=== PATIENT | female | born 1930 | race Caucasian/White ===

== ENCOUNTER 2016-11-26 12:19 | Inpatient (IN) | payer BC ==
--- NOTE | ~2016-11-26 | DS ---
Discharge Summary [facility] [address] [place]. [address] NAME: RICKI DIETRICH : 32 STATUS : DIS IN PAT#: [id number] AGE: 86 ADM/REG DATE : 11/26/16 MR#: [id number] REPORT SERV DATE: 12/05/16 DICTATED BY: SHERIF HART DATE: 12/04/16 REPORT STATUS : Draft TRANSCRIBED BY: MODL DATE: 12/04/16 ADMISSION DATE: 11/26/2016 DISCHARGE DATE: 12/04/2016 DISCHARGE DIAGNOSES: 1. Choledocholithiasis, status post ERCP with a sphincterotomy and repeated brushing of the common bile duct to remove small stones. 2. Symptomatic cholelithiasis, status post cholecystectomy. 3. Nausea and anorexia with a 13-pound weight loss. 4. Moderate protein-calorie malnutrition. 5. Chronic constipation. 6. Paroxysmal atrial fibrillation, on Xarelto. 7. Chronic pain syndrome. 8. Hypertension. 9. Hyperlipidemia. 10.Nonocclusive coronary artery disease. 11.Sleep apnea. 12.Mild cognitive impairment. 13.Generalized anxiety disorder. CONSULTANTS DURING THIS HOSPITALIZATION: Dr. Bunny Duffy of Gastroenterology, Dr. Franko Hoff of General Surgery. INVASIVE PROCEDURES DONE DURING THIS HOSPITALIZATION: 1. ERCP as noted above. 2. Laparoscopic-assisted cholecystectomy performed by Dr. Hoff. IMAGING: Please refer to interim summary dictated by Dr. Juarez on 12/02/2016. BRIEF HISTORY OF PRESENT ILLNESS: The patient is an 86-year-old female, presented with weakness, nausea, vomiting, and weight loss, so she was admitted. For detailed history and physical exam, please see note dictated by Dr. Lj Juarez on 11/26/2016. HOSPITAL COURSE: After being admitted to the hospital, this patient was cared for by Dr. Juarez. Please refer to the interim summary dictated by Dr. Juarez on 12/01/2016. I took over this patient's care on 12/02/2016. This patient was doing well. She was status post laparoscopy-assisted cholecystectomy. She was tolerating a diet. Her appetite was improving. Her nausea and vomiting had abated. Her liver functions studies had normalized. We were awaiting rehab approval. Today, we have rehab approval. Surgery has signed off her care and GI has signed off her care. She feels well enough that she could be discharged to rehab. DISCHARGE DISPOSITION: To rehab. DISCHARGE ACTIVITY: Per facility. Discharge Summary [place] [address] [address] [place]. [address] NAME: RICKI DIETRICH : 32 STATUS : DIS IN PAT#: [id number] AGE: 86 ADM/REG DATE : 11/26/16 MR#: [id number] REPORT SERV DATE: 12/05/16 DICTATED BY: SHERIF HART DATE: 12/04/16 REPORT STATUS : Draft TRANSCRIBED BY: RACHAEL DATE: 12/04/16 DISCHARGE DIET: Low-sodium diet. DISCHARGE MEDICATIONS: Baclofen 10 mg once at bedtime, BuSpar 10 mg p.o. twice daily, Celexa 40 mg once daily, Aricept 10 mg every morning, Atrovent nasal spray two sprays in each nostril once daily, Claritin 10 mg once daily, melatonin 10 mg once at bedtime, morphine SR 30 mg q.12 hours, Lopressor XL 100 mg daily, Protonix 40 mg daily, potassium 10 mEq once daily, Xarelto 20 mg once daily, Senokot one tablet once daily, Zocor 20 mg once daily, tramadol 100 mg every six hours as scheduled, Lasix 20 mg once daily, and Lamisil 250 mg p.o. daily started on 10/17 for the next 90 days. DISCHARGE FOLLOWUP: With Dr. Julio García, post rehab. More than 30 minutes spent planning this patient's discharge, reconciling medications, discussing hospital care and followup, and documenting this discharge. NA/RACHAEL Sherif Hart M.D. / [id number] CC: Nik Oneal M.D. [facility]
--- NOTE | ~2016-11-26 | OP ---
Record Of Operation [facility] [address] [place]. [address] NAME: RICKI DIETRICH : 32 STATUS : ADM Nura PAT#: [id number] AGE: 86 ADM/REG DATE : 11/26/16 MR#: [id number] REPORT SERV DATE: 12/02/16 DICTATED BY: WALKER SALES III DATE: 12/01/16 REPORT STATUS : Draft TRANSCRIBED BY: MODL DATE: 12/01/16 DATE OF PROCEDURE: 12/01/2016 PREOPERATIVE DIAGNOSES: Symptomatic cholelithiasis, cholecystitis, and recent episode of biliary colic. POSTOPERATIVE DIAGNOSES: Symptomatic cholelithiasis, cholecystitis, and recent episode of biliary colic. PROCEDURE: Laparoscopic cholecystectomy. SURGEON: Walker Sales M.D. ANESTHESIA: General with intubation. COMPLICATIONS: None. ESTIMATED BLOOD LOSS: Less than 30 mL. SPECIMENS: Gallbladder. DRAINS: None. LAP AND SPONGE COUNT: Correct x3. BRIEF HISTORY: This 86-year-old female had been admitted to the hospital emergently with evidence for chronic cholecystitis, cholelithiasis, and recent choledocholithiasis. The patient had recently undergone ERCP and common bile duct had been cleared of stones. It is now felt that laparoscopic cholecystectomy, possible laparotomy, was indicated. On this procedure, the risks, benefits, alternatives, including not limited to the risk for bleeding, infection, common bile duct injury, bile leak, retained common bile stone, enterotomy, injury to any abdominal structure, the definite possible need for laparotomy, possible persistence of her symptoms unrelieved by surgery, possibility of postoperative diarrhea or incisional hernia, and unforeseen complications including deep venous thrombosis, pulmonary embolus, myocardial infarction, stroke, pneumonia, and , were fully and completely explained to the patient and family prior to surgery. The fact that this was a major operation with risk for major morbidity and mortality, no guarantee for relief of her symptoms were explained to them. The expected length of recovery of both open and laparoscopic procedures was explained. The patient and family had questions, which were answered. They fully understood the risks and agreed to surgery as planned. DESCRIPTION OF PROCEDURE: After being properly identified and after discussing risks of surgery with the patient and family again in the preoperative area, she was taken to the operating room and placed in the supine position on the operating room table. General anesthesia was administered, and she was intubated without difficulty. The abdomen was prepped and draped sterilely in the usual fashion. After an appropriate "time-out" per Record Of Operation [facility] [address] [facility] [place]. [address] NAME: RICKI DIETRICH : 32 STATUS : ADM Nura PAT#: [id number] AGE: 86 ADM/REG DATE : 11/26/16 MR#: [id number] REPORT SERV DATE: 12/02/16 DICTATED BY: WALKER SALES III DATE: 12/01/16 REPORT STATUS : Draft TRANSCRIBED BY: MODL DATE: 12/01/16 [facility] standards, a small transverse incision was made below the umbilicus. The skin and fascia on either side of this were elevated with towel clips. A Veress needle was placed through the incision into the peritoneal cavity. Correct position of the needle in peritoneal cavity was confirmed by the hanging drop test. The abdominal cavity was insufflated to about 13 mmHg with carbon dioxide. Correct position of the air in the peritoneal cavity was confirmed by palpation. The Veress needle was removed and replaced with a 10 mm trocar. The laparoscope was placed through this. The patient was placed in reverse Trendelenburg position and to her left. A second 10 mm trocar was placed just below the xiphoid process, to the right of falciform ligament, under direct vision with the laparoscope. Two 5 mm trocars were placed along the right subcostal margin, one in the midaxillary line and the other in the midclavicular line. These were also placed under direct vision with the laparoscope. The upper abdomen was inspected. The gallbladder appeared to be chronically diseased. The gallbladder escobar were thickened, inflamed with adhesions between the gallbladder and omentum consistent with cholecystitis. The liver and remainder of the upper abdomen were otherwise unremarkable as far as we could determine through the laparoscope. The gallbladder was in an unusual location. It was extremely laterally along the right lateral lobe of the liver. The portal anatomy, however, was normal. The appropriate instruments were placed through the trocars. Using sharp dissection, the adhesions between the gallbladder and omentum were carefully dissected. The gallbladder and infundibulum were retracted laterally and inferiorly. The left lobe of the liver was fairly large and obscuring our view. For this reason, an another 5 mm trocar was placed to the left of the midline just beneath the xiphoid process, to help with mobilization of the left lobe of the liver. Using sharp dissection, the cystic duct was carefully and meticulously defined proximally and distally. The cystic duct was fairly long. The junction of the cystic duct with common bile duct was appreciated, but was not skeletonized. The cystic artery was similarly defined proximally and distally. The fibrous and fatty tissue between these structures were divided so as to clearly identify the critical view of safety and triangle of Calot. The lower portion of the gallbladder was dissected away from the liver so as to clearly identify the critical view of safety and critical angle. Once these structures were clearly defined, the cystic duct was clipped with two clips on the common bile duct side and one on the gallbladder side, all placed as close to the gallbladder as possible, taking care not encroach upon or injure the common bile duct in any way. The cystic duct was then divided between these clips as close to the gallbladder as possible. We elected not to perform a cholangiogram because there was no preoperative or intraoperative evidence for biliary dilatation because the patient's preoperative liver enzymes were normal because her ERCP had recently cleared the common bile duct of stones and because her biliary anatomy was clearly defined. The cystic artery was similarly clipped and divided as close to the gallbladder as possible. Using the spatula and the cautery, gallbladder was carefully dissected from the liver bed. This went very well. Before the gallbladder was completely removed, the gallbladder bed and portal areas were irrigated numerous times with saline. The saline was aspirated dry. This process was repeated several times until hemostasis was meticulously and thoroughly assured in all areas. It was also assured that the clips in the portal area were in good position and that there was no extravasation of bile from any accessory bile Record Of Operation [place] [address] [facility] [place]. [address] NAME: RICKI DIETRICH : 32 STATUS : ADM Nura PAT#: [id number] AGE: 86 ADM/REG DATE : 11/26/16 MR#: [id number] REPORT SERV DATE: 12/02/16 DICTATED BY: WALKER SALES III DATE: 12/01/16 REPORT STATUS : Draft TRANSCRIBED BY: MODL DATE: 12/01/16 ducts. Once this was assured, gallbladder was completely dissected away from the liver and placed in an Endopouch. The liver bed was elevated, irrigated, and inspected for meticulous and thorough hemostasis and for the absence of any biliary duct extravasation. Once this was assured, gallbladder and the Endopouch were brought out through the infraumbilical trocar site after placing the laparoscope through the subxiphoid trocar. The fascia of the infraumbilical incision was closed with 0 Vicryl suture. The 5 mm trocars were removed under direct vision with the laparoscope to assure hemostasis in these incisions. Finally, the subxiphoid trocar was removed under direct vision with laparoscopic to assure hemostasis in this incision. The air was removed from the peritoneal cavity through the skin incisions. The skin incisions were inspected for hemostasis and then closed with running subcuticular 4-0 Monocryl stitches. They were injected with 0.5% Marcaine. Dressings were applied. Anesthesia was reversed. The patient was taken to the recovery room in stable condition. She tolerated the procedure well. Her family was informed of results of surgery. The patient will remain in the hospital for postoperative care. RHJ/MODL Walker Sales III, M.D. / [id number] CC: Nik Campo M.D.
--- NOTE | ~2016-11-26 | HP ---
History And Physical [facility] [address] [place]. [address] NAME: RICKI COMBS : 32 STATUS : ADM IN [facility]#: [id number] AGE: 86 ADM/REG DATE : 11/26/16 MR#: [id number] REPORT SERV DATE: 11/26/16 DICTATED BY: DATE: REPORT STATUS : Draft TRANSCRIBED BY: MODL DATE: 11/26/16 DATE OF ADMISSION: 11/26/2016 The patient is admitted to the [facility]. CHIEF COMPLAINT: Weight loss, back pain. HISTORY OF PRESENT ILLNESS: Ms Combs is a pleasant 86-year-old white female, directly admitted from nurse practitioner, Rosalinda Tang's office this afternoon with chief complaints of nausea, poor p.o. intake, a 13-pound weight loss over the past six weeks. The patient has a history of gastroesophageal reflux disease, but denies any recent increase in heartburn. She denies any abdominal pain, although this initially was a symptom communicated as being present by the nurse practitioner. She denies any vomiting. She has not experienced any hematemesis or coffee-grounds emesis. She has had a recent increase in chronic constipation for which she was tried on Amitiza with some improvement. She reports having bowel movements daily as long as she takes her bowel regimen and prune juice. She states her stools are "always dark "because she takes iron supplements. She denies any recent change in the appearance of her bowel movements or the frequency of her bowel movements. She states that she has a "bitter taste in her mouth" and that "everything I tried to eat tastes poorly." She is unsure what to attribute this to, but states that is the main factor influencing her decrease in oral intake. The patient does endorse an increase in her back pain. She has a history of chronic lumbar spine back pain for which she sees pain management. Her tramadol has recently been increased in an attempt to help with the pain, but it has not. She denies any specific precipitating injury to her back recently. The patient has been seen on multiple occasions this month by Pain Management and her primary care provider for the above symptoms. She has been treated twice in the past month for urinary tract infection. Urinalyses were positive for red blood cells and leukocyte esterase at that time, but cultures were not obtained. She was treated with Cipro on both occasions. She denies any current dysuria, frequency, hematuria, or odor. She was seen by her primary care provider on 11/24/2016, and a comprehensive metabolic panel, as well as iron, amylase, ferritin, lipase, and TSH were obtained. Labs were normal and results will be dictated below. She also had a CBC done which was normal. She was sent for a CT abdomen and pelvis with contrast on 11/25/2016 to [facility] with findings of right hemidiaphragm elevation, hypodense lesions in the right hepatic lobe, and left hepatic lobes, mild hepatic steatosis, gallstone but no evidence of gallbladder distention or inflammation. Her common bile duct was noted to be mildly dilated at the pancreatic head along with mild dilation of the proximal pancreatic duct. She had no evidence of abdominal aortic aneurysm, small bowel obstruction, or fecal stasis/constipation. Focally advanced degenerative disk disease at L5-S1 was noted with a focus of circumscribed fat density in the perirectal fat, felt to represent fat necrosis. History And Physical [address] [address] NAME: RICKI COMBS : 32 STATUS : ADM IN [facility]#: [id number] AGE: 86 ADM/REG DATE : 11/26/16 MR#: [id number] REPORT SERV DATE: 11/26/16 DICTATED BY: DATE: REPORT STATUS : Draft TRANSCRIBED BY: MODL DATE: 11/26/16 The patient is referred to the Hospitalist Service for further evaluation of these symptoms because the nurse practitioner did not feel that the symptoms could be worked up additionally as an outpatient. The patient has seen Dr. Faulkner of [facility] previously with last EGD and colonoscopy in 2012. Procedures were performed for melena and heme-positive stools. She was found to have rectal prolapse and a hiatal hernia. REVIEW OF SYSTEMS: A full 14-point review of systems is negative except as dictated in the history of present illness. Of note, recent medication changes include the addition of terbinafine to the patient's regimen early in September which she states are around the same time her other symptoms started. She also has recently had discontinuation of nortriptyline and amitriptyline and addition of hematochezia as well as increase in tramadol. PAST MEDICAL HISTORY: Includes: 1. Nonocclusive coronary artery disease. 2. Permanent atrial fibrillation, rate controlled and on Xarelto. 3. Hypertension. 4. Hyperlipidemia. 5. Gastroesophageal reflux disease/mild gastritis. 6. Sleep apnea - does not utilize CPAP or nocturnal oxygen. 7. Osteoarthritis of bilateral knees, arms, shoulders. 8. Lumbar spine degenerative disk disease with previous lumbar spine surgery. 9. Mild cognitive impairment. 10.History of GI bleed in 2013. 11.Chronic constipation. PAST SURGICAL HISTORY: Includes bilateral knee replacement, lumbar spine surgery in 2006, hysterectomy, bilateral cataract extraction, and noted history of breast augmentation. ALLERGIES: INCLUDE DILTIAZEM AND CODEINE. CURRENT MEDICATIONS: 1. Amitiza 8 mcg p.o. q.h.s. 2. Baclofen 10 mg p.o. q.h.s. 3. BuSpar 10 mg p.o. b.i.d. 4. Citalopram 40 mg p.o. daily. 5. Donepezil 10 mg p.o. daily. 6. Iron sulfate 325 mg p.o. daily. 7. Furosemide 20 mg p.o. daily. 8. Ipratropium nasal spray 2 sprays in each nostril twice a day. 9. Loratadine 10 mg p.o. daily. 10.Melatonin 10 mg p.o. q.h.s. 11.Metoprolol extended release 100 mg p.o. daily. 12.Morphine extended release 30 mg twice a day. 13.Protonix 40 mg p.o. daily. History And Physical [address] [address] NAME: RICKI COMBS : 32 STATUS : ADM IN [facility]#: [id number] AGE: 86 ADM/REG DATE : 11/26/16 MR#: [id number] REPORT SERV DATE: 11/26/16 DICTATED BY: DATE: REPORT STATUS : Draft TRANSCRIBED BY: RACHAEL DATE: 11/26/16 14.Potassium chloride 10 mEq p.o. daily. 15.Senokot 8.6 mg p.o. nightly. 16.Simvastatin 20 mg p.o. daily. 17.Terbinafine 250 mg p.o. daily. 18.Ultram 100 mg p.o. every six hours. 19.Xarelto 20 mg p.o. daily. SOCIAL HISTORY: The patient currently resides at [facility]. She has a supportive daughter who is here at the bedside. No history of current tobacco use or alcohol use. She does not drive and ambulates with a walker at baseline. FAMILY HISTORY: Pertinent for lung cancer in her mother, diabetes in her brother, hypertension in her brother, and coronary artery disease in her brother. PHYSICAL EXAMINATION: VITAL SIGNS: Blood pressure 144/82, oxygen saturations 94% on room air, heart rate 80, respiratory rate 12, and temperature 98.7. GENERAL: This is a well-developed, well-nourished pleasant white female, in no acute distress. Alert and oriented in three dimensions. HEENT: Normocephalic, atraumatic. Pupils are equally round and reactive to light. No scleral icterus. No conjunctival pallor. No sinus tenderness to palpation. No nasal drainage. NECK: Supple with no lymphadenopathy. No bruits. No thyromegaly. CARDIOVASCULAR: Irregularly irregular rhythm with normal rate. No murmurs, rubs, or gallops. LUNGS: Clear to auscultation bilaterally. No wheezes, crackles, nor rhonchi. ABDOMEN: Soft, nontender, and nondistended with normoactive bowel sounds in four quadrants and no hepatosplenomegaly. EXTREMITIES: No cyanosis, clubbing, or edema. SKIN: Normal skin turgor with no rash or skin breakdown. NEUROLOGIC: Cranial nerves 2 through 12 were tested and are intact. Deep tendon reflexes 2+ bilateral brachioradialis and patellar tendons. Sensation intact to fine touch and temperature in all four limbs and strength is 5/5 bilateral upper and lower extremities. LABORATORY DATA: 11/24/2016 outpatient labs pertinent for sodium 139, potassium 3.9, chloride 99, bicarb 30, glucose 98, creatinine 0.6. Calcium 9.5, albumin 4.4, total bilirubin 0.9, direct bilirubin 0.4, indirect is 0.5. ALT 26, AST 26, alkaline phosphatase 113, total protein 7.8, albumin 3.4, iron 60, amylase 30, ferritin 236.4, TSH 5.5. Lipase value not available. Urinalysis not available but culture negative at 24 hours. White blood cell count 7.2, hemoglobin 16.5, hematocrit 50.4, and platelets 219. IMAGING AND DIAGNOSTICS: CT abdomen and pelvis, as dictated in history of present illness with pertinent findings of several hypodense lesions in the liver of uncertain etiology, cholelithiasis, mild extrahepatic biliary ductal dilatation and proximal pancreatic duct dilatation raising possibility of distal biliary obstruction, small hiatal hernia, and circumscribed fat density in the perirectal fat. History And Physical [address] [place]. [address] NAME: RICKI COMBS : 32 STATUS : ADM IN PAT#: [id number] AGE: 86 ADM/REG DATE : 11/26/16 MR#: [id number] REPORT SERV DATE: 11/26/16 DICTATED BY: DATE: REPORT STATUS : Draft TRANSCRIBED BY: MODL DATE: 11/26/16 IMPRESSION: 1. Poor p.o. intake with a 13-pound weight loss over six weeks. 2. Nausea, but no vomiting. 3. Constipation - acute on chronic. 4. Increased back pain with a history of lumbar spine degenerative disk disease, followed by Pain Management. 5. Mild dilation of the common bile duct and pancreatic duct on CT scan. 6. Possible liver cyst on CT scan. 7. Chronic anticoagulation for atrial fibrillation. 8. Recent initiation of terbinafine, temporally associated with symptom onset. 9. Past medical history as outlined. PLAN: 1. The patient is admitted in observation status to [address] [place] [address] attending, Dr. Lj Juarez. 2. The nature of her symptoms is somewhat elusive, and exact etiology cannot be determined. The CT findings are potentially concerning for a pancreatic process or common bile duct mass. We will obtain an MRCP for better evaluation, and I have requested GI consultation from Dr. Duffy regarding potential for EGD or ERCP following results of MRCP. 3. We will discontinue the patient's terbinafine as this seems to have been temporally associated with her symptom onset. 4. Labs pending today include CBC, CMP, amylase, lipase, magnesium, repeat TSH with a free T4 to evaluate for hypothyroidism, serum lactate, CA-19-9, stool guaiacs, and pre- albumin to evaluate for protein calorie malnutrition. 5. P.r.n. IV narcotics for her severe back pain unrelieved by home regimen. 6. IV anti-emetics. 7. Xarelto will be held at present for possible upcoming invasive procedures. This was explained to the patient and her daughter at the bedside. Additional recommendations pending results of above. AKS/MODL Lj Juarez M.D. / [id number] CC: Nik Campo M.D.
--- NOTE | ~2016-11-26 | CN ---
Consultation Report [facility] [address] [place]. [address] NAME: RICKI COMBS : 32 STATUS : ADM IN PAT#: [id number] AGE: 86 ADM/REG DATE : 11/26/16 MR#: [id number] REPORT SERV DATE: 11/26/16 DICTATED BY: EVER MCKEON DATE: 11/26/16 REPORT STATUS : Draft TRANSCRIBED BY: MODL DATE: 11/26/16 GI CONSULTATION DATE OF CONSULTATION: 11/26/2016 REASON FOR CONSULTATION: Evaluation and management of nausea, abnormal CT scan. HISTORY OF PRESENT ILLNESS: Ms. Combs is an 86-year-old female patient, who is known to Dr. Chris Faulkner, who presented after being seen by her primary care physician for a direct admission today for nausea, anorexia, weight loss, abnormal CT scan in the outpatient setting. She was seen in their office on 11/24/2016 with complaints of weight loss and abdominal pain. She had a CT scan that was obtained at [facility], report is available in the chart and state impression that she has several hypodense lesions in the liver of uncertain etiology and are not conclusively cystic by CT criteria, cholelithiasis, mild extrahepatic biliary ductal dilatation, and proximal pancreatic duct dilatation raising the possibility of distal biliary obstruction, a small hiatal hernia, degenerative changes of the spine. She did have laboratory work done with them. White count was 7.2, hemoglobin was 16.5, hematocrit was 50.4, platelet count was 219. Her sodium was 139, potassium is 3.9. Her total bilirubin was 0.9. Her ALT 26, AST was 26 also, alkaline phosphatase is 113. Amylase was [address] scan findings and weight loss. She was sent for further evaluation. The patient states that she also has had some dysphagia with prolonged mastication, altered sense of taste after beginning terbinafine. I will discuss with the patient as well as the family with her being on Xarelto, and no elevation in her liver enzymes. We will start with an MRI of her abdomen in consideration for potential ERCP, EUS versus EGD. They are agreeable to proceed. PAST MEDICAL HISTORY: Positive for upper GI bleeding in 2012, coronary artery disease, chronic atrial fibrillation, previous Coumadin induced, she is now on Xarelto, hypertension, GERD, elevated cholesterol, obstructive sleep apnea, osteoarthritis, chronic pain, pain management, colon polyps gastritis. SURGICAL HISTORY: Lower back surgery, cardiac catheterization, total knee replacement, hysterectomy, and cardioversion. SOCIAL HISTORY: She lives in assisted living. No alcohol, tobacco, or illicit drugs. FAMILY HISTORY: Noncontributory from a GI standpoint. ALLERGIES: LISTED TO DILTIAZEM AND CODEINE. HOME MEDICATIONS: Baclofen, BuSpar, Celexa, Aricept, ferrous sulfate, Lasix, Atrovent, Claritin, melatonin, Toprol, MS Contin, Protonix, potassium, Xarelto, Senokot, Zocor, Lamisil, and Ultram. Consultation Report [place] [id number] [place]. [address] NAME: RICKI COMBS : 32 STATUS : ADM IN [facility]#: [id number] AGE: 86 ADM/REG DATE : 11/26/16 MR#: [id number] REPORT SERV DATE: 11/26/16 DICTATED BY: EVER MCKEON DATE: 11/26/16 REPORT STATUS : Draft TRANSCRIBED BY: RACHAEL DATE: 11/26/16 REVIEW OF SYSTEMS: A 10-point review of systems was obtained with pertinent positives being addressed in the history of present illness. Vital signs are not yet taken. Laboratory data at [facility] not available. CT scan from outpatient setting was dictated in the history of present illness. PHYSICAL EXAMINATION: NEURO: Reveals an alert female, resting in bed with no focal deficits. Awake, alert, and oriented x3. GENERAL: Cooperative, in no obvious acute distress. HEAD EARS, EYES, NOSE, AND THROAT : Anicteric. Pupils equal, round, reactive to light and accommodation. Normocephalic and atraumatic. NECK: No JVD. No palpable nodes. CARDIOVASCULAR SYSTEM: Regular rate and rhythm. ABDOMEN: Soft, nondistended, nontender. Active bowel sounds in all four quadrants with no organomegaly appreciated. EXTREMITIES: No edema. Normal distal pulses. SKIN: Warm, dry, and intact. ASSESSMENT AND PLAN: 1. Nausea, acute on chronic. 2. Weight loss. 13 pounds in the last six weeks. 3. Dysphagia and dysgeusia. 4. Constipation, chronic. 5. Mild dilation of the common bile duct and pancreatic duct. 6. Questionable liver cyst versus neoplasm. PLAN: 1. MRCP. 2. PPI. 3. Check a CA 19-9 and alpha-fetoprotein as well as LFTs. 4. Questionable ERCP versus EUS versus EGD based on MRI findings. I will hold Xarelto at present for anticipation for possibility of scoping. Plan of care was discussed with daughter, who was present at the bedside. We will follow. GEORGIE/RACHAEL KAVYA Srinivasan / [id number] CC: Consultation Report [address] [place]. [address] NAME: RICKI COMBS : 32 STATUS : ADM IN PAT#: [id number] AGE: 86 ADM/REG DATE : 11/26/16 MR#: [id number] REPORT SERV DATE: 11/26/16 DICTATED BY: EVER MCKEON DATE: 11/26/16 REPORT STATUS : Draft TRANSCRIBED BY: RACHAEL DATE: 11/26/16 Nik Campo. Julio García M.D.
--- NOTE | ~2016-11-26 | EGD ---
EGD REPORT [facility] [address] [place]. [address] NAME: RADHA COMBS : 32 STATUS : ADM Nura PAT#: [id number] AGE: 86 ADM/REG DATE : 11/26/16 MR#: [id number] REPORT SERV DATE: 11/28/16 DICTATED BY: BUNNY TAYLOR DATE: 11/28/16 REPORT STATUS : Draft TRANSCRIBED BY: [facility] DATE: 11/28/16 [facility] Patient Name: Radha Combs Date of : 1930 Attending MD: BUNNY TAYLOR MD Procedure Date No Time: 11/28/2016 Procedure: ERCP Indications: Evaluation and possible treatment of bile duct stone(s) Medicines: Monitored Anesthesia Care, General Anesthesia Complications: No immediate complications. Estimated blood loss: Minimal. Procedure: Pre-Anesthesia Assessment: - ASA Grade Assessment: III - A patient with severe systemic disease. After obtaining informed consent, the scope was passed under direct vision. Throughout the procedure, the patient's blood pressure, pulse, and oxygen saturations were monitored continuously. The Duodenoscope was introduced through the mouth, and advanced to the duodenum and used to inject contrast into the bile duct. The ERCP was accomplished without difficulty. The patient tolerated the procedure well. Findings: The activity aid film was normal. The esophagus was successfully intubated under direct vision. The scope was advanced to a normal major papilla in the descending duodenum without detailed examination of the pharynx, larynx and associated structures, and upper GI tract. After engaging the papilla with the sphinctertome, a 0.035 inch x 260 cm straight Dreamwire was passed into the biliary tree. The short-nosed traction sphincterotome was passed over the guidewire and the bile duct was then deeply cannulated. Contrast was injected. I personally interpreted the bile duct images. Image quality was adequate. The main bile duct was moderately dilated and diffusely dilated, with small stone/s causing an obstruction. The largest diameter was 12 mm. A 10 mm biliary sphincterotomy was made with a monofilament traction (standard) sphincterotome using ERBE electrocautery. There was no post-sphincterotomy bleeding. Debris was swept from the duct but no definitive stones were seen. Repeated balloon sweeps were performed, with passage of the 12 mm balloon through the biliary orifice with little/no resistance, suggesting a widely patent common bile duct. The endoscope was withdrawn from the patient. Impression: - The entire main bile duct was moderately dilated, with small stones seen on cholangiogram causing an EGD REPORT [address] [address] NAME: RADHA COMBS : 32 STATUS : ADM Nura PAT#: [id number] AGE: 86 ADM/REG DATE : 11/26/16 MR#: [id number] REPORT SERV DATE: 11/28/16 DICTATED BY: BUNNY TAYLOR DATE: 11/28/16 REPORT STATUS : Draft TRANSCRIBED BY: [employer] DATE: 11/28/16 obstruction. - Successful sphincterotomy with repeated balloon sweeps to clear the CBD Recommendation: - [facility]. - Observe patient's clinical course following today's ERCP with therapeutic intervention. - Surgical consultation for consideration of cholecystectomy next available. Procedure Code(s): --- Professional --- 74463, Endoscopic retrograde cholangiopancreatography (ERCP); with removal of calculi/debris from biliary/pancreatic duct(s) 44232, Endoscopic retrograde cholangiopancreatography (ERCP); with sphincterotomy/papillotomy Diagnosis Code(s): --- Professional --- K80.31, Calculus of bile duct with cholangitis, unspecified, with obstruction K80.33, Calculus of bile duct with acute cholangitis with obstruction K80.35, Calculus of bile duct with chronic cholangitis with obstruction K80.37, Calculus of bile duct with acute and chronic cholangitis with obstruction K80.51, Calculus of bile duct without cholangitis or cholecystitis with obstruction K80.50, Calculus of bile duct without cholangitis or cholecystitis without obstruction CPT copyright 2013 [employer]. All rights reserved. The codes documented in this report are preliminary and upon hall cleaner review may be revised to meet current compliance requirements. Bunny Taylor MD BUNNY TAYLOR MD 11/28/2016 8:25 AM This report has been signed electronically. Number of Addenda: 0 Note Initiated On: 11/28/2016 7:11 AM Scope Withdrawal Time 0 hours 0 minutes 0 seconds EGD REPORT [place] [id number] [place] [address] NAME: RADHA COMBS : 32 STATUS : ADM Nura PAT#: [id number] AGE: 86 ADM/REG DATE : 11/26/16 MR#: [id number] REPORT SERV DATE: 11/28/16 DICTATED BY: BUNNY TAYLOR DATE: 11/28/16 REPORT STATUS : Draft TRANSCRIBED BY: [employer] DATE: 11/28/16 [place] Fowler [id number]
--- NOTE | ~2016-11-26 | IDS ---
Interim Discharge Summary [facility] [address] [place]. [address] NAME: RICKI DIETRICH : 32 STATUS : ADM Nura PAT#: [id number] AGE: 86 ADM/REG DATE : 11/26/16 MR#: [id number] REPORT SERV DATE: 12/02/16 DICTATED BY: DATE: REPORT STATUS : Draft TRANSCRIBED BY: MODL DATE: 12/01/16 ADMISSION DATE: 11/26/2016 DISCHARGE DATE: The patient is admitted to the [facility] Hospitalist Service. CONSULTANTS: Included Dr. Duffy of Gastroenterology and Dr. Hoff of General Surgery. CURRENT DIAGNOSES: 1. Choledocholithiasis - status post ERCP with sphincterotomy and repeated brushings of the common bile duct to remove small stones on 11/28/2016. 2. Symptomatic cholelithiasis - status post laparoscopic cholecystectomy on 12/01/2016. 3. Nausea, anorexia, 13-pound weight loss, and moderate protein-calorie malnutrition prior to admission - due to choledocholithiasis and symptomatic cholelithiasis. 4. Chronic constipation. 5. Paroxysmal atrial fibrillation. Xarelto held preoperatively. For reinitiation when okay with General Surgery. Currently in normal sinus rhythm. 6. Chronic pain syndrome and narcotic dependence. 7. Hypertension - controlled with the exception of postop elevation. 8. Hyperlipidemia. 9. Nonocclusive coronary artery disease. 10.Sleep apnea - not utilizing CPAP or nocturnal oxygen. 11.Mild cognitive impairment. 12.Generalized anxiety disorder. IMAGIN. MRCP on 11/26/2016 shows benign liver cysts or hemangiomas, evidence of choledocholithiasis with obstruction of the common bile duct. Common bile duct measures 0.7 cm. Stone appears to be in slightly different positions and some of the sequences suggesting somewhat mobile. Obstructive pattern may be clinically intermittent. 2. ERCP, 11/28/2016, by Dr. Duffy with findings of multiple small bile duct stones. Main bile duct was moderately dilated and diffusely dilated. Sphincterotomy was performed and debris was swept from the duct with repeated balloon sweeps. PERTINENT LABS: Creatinine has been normal this admission. Liver enzymes normal this admission. Lipase minimally elevated, after ERCP at 872. TSH 2.1, free T4 of 1.76. CA19-9 of 5.4, alpha fetoprotein negative. Lactate 1.0. White blood cell count ranging from 4.6 to 9.4. Normal hemoglobin and hematocrit. Normal platelets. Normal coagulation studies. Stool for guaiac was positive x1. BRIEF HISTORY: For full details, please see the previously dictated history of present illness. This is an 86-year-old white female directly admitted from nurse practitioner, Rosalinda Tang's office the afternoon of 11/26/2016 with chief complaints of nausea, poor p.o. intake, 13-pound weight loss in the preceding six weeks. She had an outpatient CT scan done just prior to admission, which demonstrated hypodense lesions in the right hepatic Interim Discharge Summary [place] [id number] [place]. [address] NAME: RICKI DIETRICH : 32 STATUS : ADM Nura PAT#: [id number] AGE: 86 ADM/REG DATE : 11/26/16 MR#: [id number] REPORT SERV DATE: 12/02/16 DICTATED BY: DATE: REPORT STATUS : Draft TRANSCRIBED BY: MODL DATE: 12/01/16 lobe, mild hepatic steatosis, gallstone, and dilation of the common bile duct and proximal pancreatic duct. She was admitted to the Hospitalist Service for further evaluation of the symptoms and abnormalities on CT scan. HOSPITAL COURSE: The patient initially was admitted in observation status, and met criteria for inpatient admission by 11/27/2016 when her MRCP was reported demonstrating choledocholithiasis. Gastroenterology had been consulted and the patient underwent an ERCP on 11/28/2016, demonstrating choledocholithiasis with biliary ductal dilatation, and she subsequently underwent a sphincterotomy. Gastroenterology recommended obtaining surgical consultation for gallstones and symptomatic cholelithiasis. Dr. Franko Hoff saw the patient and schedule the patient for laparoscopic cholecystectomy, which occurred on 12/01/2016. The patient is immediately postoperative today, with no complaints aside from some nausea, which is controlled with medications and some nonspecific mild abdominal pain. She is just about to attempt her first p.o. intake since surgery. She states that she has had much weakness related to her prolonged illness preceding admission and she is unsure whether she will be able to return to assisted living currently. Physical Therapy evaluation is pending to determine if she would be a candidate for inpatient rehab or alf facility with rehab prior to return to [facility]. Her other medical issues as outlined above have been stable this admission. Her Xarelto is currently on hold, and will need to be resumed when okay with General Surgery. DISPOSITION: The patient remains hospitalized, to be followed by a colleague starting tomorrow. Would anticipate discharge to either alf facility or rehab within the next 48 to 72 hours, pending clinical course. BENNY/RACHAEL Lj Juarez M.D. / [id number] CC: Nik Campo M.D.
--- NOTE | ~2016-11-26 | CN ---
Consultation Report [place] [id number] [facility] [place]. [address] NAME: RICKI DIETRICH : 32 STATUS : ADM Nura PAT#: [id number] AGE: 86 ADM/REG DATE : 11/26/16 MR#: [id number] REPORT SERV DATE: 11/29/16 DICTATED BY: WALKER SALES III DATE: 11/29/16 REPORT STATUS : Draft TRANSCRIBED BY: MODL DATE: 11/29/16 CONSULT DATE OF CONSULTATION: 11/28/2016 REASON FOR CONSULT: 1. Cholelithiasis and nausea and weight loss. 2. Recommendation regarding surgical management. HISTORY OF PRESENT ILLNESS: We are asked to see this 86-year-old female hospitalized with the above reasons. The patient complains of a 6-week history of severe nausea. This nausea has been associated with anorexia and weight loss. The patient has had no definite abdominal pain. She has had no definite vomiting. The patient presented to the emergency room on admission, was found to have evidence for choledocholithiasis with cholelithiasis. The patient underwent ERCP yesterday. Common bile duct stones were removed. A sphincterotomy was performed. The patient feels better today. PAST MEDICAL HISTORY: 1. Atrial fibrillation. 2. Coronary artery disease. 3. Hypertension. 4. Gastroesophageal reflux disease. 5. Hypercholesterolemia. 6. Sleep apnea. 7. Chronic pain requiring pain management and chronic narcotics. 8. History of chronic constipation. 9. GI bleed in the past. ALLERGIES: CODEINE AND DILTIAZEM. MEDICATIONS: Lioresal, BuSpar, Celexa, Aricept, iron, Atrovent, Claritin, Amitiza, melatonin, Toprol, MS Contin, Protonix, potassium, Senokot, Zocor, Ultram, and Xarelto which has been held. PAST SURGICAL HISTORY: Includes hysterectomy, bilateral knee replacement, back surgery, breast augmentation, tonsillectomy. SOCIAL HISTORY: The patient lives in assisted living facility locally. She has no history of tobacco or alcohol use. FAMILY HISTORY: Positive for diabetes, hypertension, coronary artery disease. Consultation Report [place] [id number] [facility] [place]. [address] NAME: RICKI DIETRICH : 32 STATUS : ADM Nura PAT#: [id number] AGE: 86 ADM/REG DATE : 11/26/16 MR#: [id number] REPORT SERV DATE: 11/29/16 DICTATED BY: WALKER SALES III DATE: 11/29/16 REPORT STATUS : Draft TRANSCRIBED BY: MODPaula DATE: 11/29/16 REVIEW OF SYSTEMS: The patient's 14-point review of systems is otherwise unremarkable. PHYSICAL EXAMINATION: GENERAL: Pleasant, chronically ill-appearing, somewhat obese female, in no acute distress. She is alert and oriented x3. HEENT: Unremarkable. CRANIAL NERVES: II through XII normal. LUNGS: Clear. CARDIAC: Normal. ABDOMEN: Soft, nontender. EXTREMITIES: Normal. VITAL SIGNS: Blood pressure 172/84, pulse 82, temperature 98.3. LABORATORY DATA: CT scan of the abdomen and pelvis showed evidence for several hypodense lesions in the liver, cholelithiasis, and mild biliary dilatation and proximal pancreatic duct dilatation with possible obstruction. MRCP performed here shows benign-appearing hepatic cyst or hemangioma. ERCP performed yesterday showed evidence for choledocholithiasis. Stones were removed. ASSESSMENT: 1. 86-year-old female with symptomatic cholelithiasis and chronic cholecystitis and choledocholithiasis. 2. Status post ERCP with common bile duct stone extraction. 3. Hypercholesterolemia. 4. Hypertension. 5. Coronary artery disease. 6. Atrial fibrillation. 7. Obstructive sleep apnea. 8. Chronic pain requiring chronic narcotics. 9. Chronic constipation. PLAN: I have discussed with the patient recommendations for laparoscopic cholecystectomy, possible laparotomy. We will schedule this to be done for her on Thursday. This procedure, the risks, benefits, and alternatives, including but not limited to the risk for bleeding, infection, common bile duct injury, bile leak, retained common bile duct stone, enterotomy, injury to the abdominal structures, the definite possible need for laparotomy, possible persistence of her symptoms unrelieved by surgery, the possibility of postop diarrhea or incisional hernia, and unforeseen complications including deep venous thrombosis, pulmonary embolus, myocardial infarction, stroke, pneumonia, and , have been explained to the patient and family at length prior to the surgery. The fact that this is a major operation with risk for major morbidity and mortality, no guarantee for relief of her symptoms has been explained. The expected length of recovery with open laparoscopic procedure has been explained. The fact that she is at increased risk for thromboembolic complications during Consultation Report [place] [id number] [place] [address] NAME: RICKI DIETRICH : 32 STATUS : ADM Nura PAT#: [id number] AGE: 86 ADM/REG DATE : 11/26/16 MR#: [id number] REPORT SERV DATE: 11/29/16 DICTATED BY: WALKER SALES III DATE: 11/29/16 REPORT STATUS : Draft TRANSCRIBED BY: MODPaula DATE: 11/29/16 this time while her anticoagulation is held has been explained. The patient's questions have been answered. She understands the risks and agrees to the surgery as planned. RHKhang/RACHAEL Walker Sales III, M.D. / [id number] CC: Nik Campo
[~2016-11-26 12:19] MED LIST: ANALPRAM-HC1 CRE RE; ATRONASAL3 NAS; B12100T PO; BUSPAR10 PO; BUSPAR5 PO; C2 PO; C25 PO; CELEBREX2 PO; CO Q-10100 MG PO; CYMBALTA60 PO; DSS PO; ESTRACE0.5 MG PO; ESTRACE1 MG PO; ESTRADIOL0.5 MG OR; FOSAMAX70 MG PO; KADIAN10 MG PO; KLOR-CON 1010 MEQ PO; L20 PO; LOP100 PO; LOP50 PO; MOBIC7.5 PO; MSCONT15 PO; MULTIVITAMI1 PO; NORV5 PO; PRILO PO; PROTONIX PO; SINGULAIR1 PO; STOOL SOFTEN100 MG PO; TOPXL100 PO; TOPXL50 PO; VITAMIN D31000 UNIT PO; VYTORIN 10/20 T1 TAB PO; ZOCOR20 PO; ZYRTEC ALLGY10 MG PO
[2016-11-26] MEDS ORDERED: CELEXA40 MG PO (13:55)
[2016-11-26] MEDS ORDERED: PROTONIX PO (13:55)
[2016-11-26] MEDS ORDERED: L20 PO (13:55)
[2016-11-26] MEDS ORDERED: LAM250 PO (13:57)
[2016-11-26] MEDS ORDERED: CLARIT10 PO (13:57)
[2016-11-26] MEDS ORDERED: ATRONASAL3 NAS (13:57)
[2016-11-26] MEDS ORDERED: ARICEPT10 PO (13:58)
[2016-11-26] MEDS ORDERED: TOPXL100 PO (13:58)
[2016-11-26] MEDS ORDERED: KDUR10 PO (13:58)
[2016-11-26] MEDS ORDERED: FERROUS SULF325 M1 PO (13:58)
[2016-11-26] MEDS ORDERED: BUSPAR10 PO (13:59)
[2016-11-26] MEDS ORDERED: MSCONTIN PO (13:59)
[2016-11-26] MEDS ORDERED: XARELTO20 MG PO (14:00)
[2016-11-26] MEDS ORDERED: LIOR10 PO (14:00)
[2016-11-26] MEDS ORDERED: ULTRAM50 PO (14:00)
[2016-11-26] MEDS ORDERED: ZOCOR20 PO (14:01)
[2016-11-26] MEDS ORDERED: MELATONIN10 M2 PO (14:01)
[2016-11-26] MEDS ORDERED: SENTAB PO (14:01)
[2016-11-26 16:33] LABS: BASOPHILS 0.2 %; BASOPHILS ABSOLUTE 0.01 10/3/uL (0.0-0.16); EOSINOPHILS 2.4 %; EOSINOPHILS ABSOLUTE 0.14 10/3/uL (0.0-0.53); IMMATURE GRANULOCYTES 0.3 %; IMMATURE GRANULOCYTES ABSOLUTE 0.02 10/3/uL (0.0-0.11); LYMPHOCYTES 34.4 %; LYMPHOCYTES ABSOLUTE 2.04 10/3/uL (0.67-4.30); MEAN PLATELET VOLUME 11.3 fL (9.2-13.0); MONOCYTES 11.3 %; MONOCYTES ABSOLUTE 0.67 10/3/uL (0.21-1.20); NEUTROPHILS 51.4 %; NEUTROPHILS ABSOLUTE 3.05 10/3/uL (2.02-8.40); PLATELET COUNT 195 10/3/uL (150-400); RBC DISTRIBUTION WIDTH 14.6 % (12.0-16.0); RED CELL COUNT 5.62 10/6/uL (4.0-5.6); WHITE BLOOD CELLS 5.9 10/3/uL (4.5-10.5)
[2016-11-26 16:40] LABS: HEMATOCRIT 46.3 % (36.0-48.0); HEMOGLOBIN 15.4 g/dL (12.0-16.0); MANUAL DIFF NO %; MEAN CORPUS HGB CONC 33.3 g/dL (32.0-36.0); MEAN CORPUSCULAR HEMOGLOB 27.4 pg (26.0-34.0); MEAN CORPUSCULAR VOLUME 82.4 fL (80-100)
[2016-11-26 17:03] LABS: A/G RATIO 0.7 (0.7-1.9); BUN (BLOOD UREA NITROGEN) 7 MG/DL (6-23); CA-19-9 5.4 U/ML (< 37.0); CO2 (CARBON DIOXIDE) 29 MMOL/L (24-34); GLOBULIN 4.2 G/DL (2.5-4.1); TOTAL BILIRUBIN 0.7 MG/DL (0-1.2); TOTAL PROTEIN 7.2 G/DL (6.0-8.5)
[2016-11-26 17:21] LABS: CHLORIDE, SERUM 101 MMOL/L (96-112); CREATININE 0.71 MG/DL (0.55-1.02); FREE T4 1.76 NG/DL (0.76-1.46); GFR AFRICAN AMERICAN 91 ML/MIN (>=60); GFR NON AFRICAN AMERICAN 78 ML/MIN (>=60); PREALBUMIN 14.5 MG/DL (17.0-43.0); SGPT(ALT) 23 U/L (5-65); SODIUM, SERUM 137 MMOL/L (135-148)
[2016-11-26 17:41] LABS: ALKALINE PHOSPHATASE 103 U/L (45-117); GLUCOSE, SERUM 89 MG/DL (60-99); POTASSIUM, SERUM 4.5 MMOL/L (3.5-5.3); SGOT(AST) 36 U/L (5-40)
[2016-11-27 06:05] LABS: INTERNATIONAL NORMAL RATI 1.3 UNITS (-); PROTIME (NOT ORD) 15.6 SEC (12.0-14.5)
[2016-11-27 06:17] LABS: BASOPHILS 0.2 %; BASOPHILS ABSOLUTE 0.01 10/3/uL (0.0-0.16); EOSINOPHILS 1.7 %; HEMATOCRIT 43.8 % (36.0-48.0); HEMOGLOBIN 14.8 g/dL (12.0-16.0); IMMATURE GRANULOCYTES 0.3 %; IMMATURE GRANULOCYTES ABSOLUTE 0.02 10/3/uL (0.0-0.11); LYMPHOCYTES 24.6 %; LYMPHOCYTES ABSOLUTE 1.43 10/3/uL (0.67-4.30); MEAN CORPUS HGB CONC 33.8 g/dL (32.0-36.0); MEAN CORPUSCULAR HEMOGLOB 27.7 pg (26.0-34.0); MEAN PLATELET VOLUME 11.9 fL (9.2-13.0); MONOCYTES ABSOLUTE 0.64 10/3/uL (0.21-1.20); NEUTROPHILS 62.2 %; NEUTROPHILS ABSOLUTE 3.62 10/3/uL (2.02-8.40); PLATELET COUNT 198 10/3/uL (150-400); RBC DISTRIBUTION WIDTH 14.6 % (12.0-16.0); RED CELL COUNT 5.34 10/6/uL (4.0-5.6); WHITE BLOOD CELLS 5.8 10/3/uL (4.5-10.5)
[2016-11-27 06:20] LABS: MANUAL DIFF NO %
[2016-11-27 06:25] LABS: BUN (BLOOD UREA NITROGEN) 6 MG/DL (6-23); CALCIUM, SERUM 8.7 MG/DL (8.5-10.4); CHLORIDE, SERUM 103 MMOL/L (96-112); CO2 (CARBON DIOXIDE) 27 MMOL/L (24-34); CREATININE 0.54 MG/DL (0.55-1.02); DIRECT BILIRUBIN 0.3 MG/DL (0.0-0.4); GFR AFRICAN AMERICAN 100 ML/MIN (>=60); GFR NON AFRICAN AMERICAN 87 ML/MIN (>=60); GLUCOSE, SERUM 105 MG/DL (60-99); INDIRECT BILIRUBIN(NOT ORDER) 0.5 MG/DL (0.1-0.9); POTASSIUM, SERUM 3.6 MMOL/L (3.5-5.3); SGOT(AST) 15 U/L (5-40); SGPT(ALT) 18 U/L (5-65); SODIUM, SERUM 140 MMOL/L (135-148); TOTAL BILIRUBIN 0.8 MG/DL (0-1.2); TOTAL PROTEIN 6.6 G/DL (6.0-8.5)
[2016-11-27 06:26] LABS: ALKALINE PHOSPHATASE 91 U/L (45-117)
[2016-11-28 06:38] LABS: BASOPHILS 0.4 %; BASOPHILS ABSOLUTE 0.02 10/3/uL (0.0-0.16); EOSINOPHILS 3.1 %; EOSINOPHILS ABSOLUTE 0.14 10/3/uL (0.0-0.53); HEMATOCRIT 43.9 % (36.0-48.0); HEMOGLOBIN 14.3 g/dL (12.0-16.0); IMMATURE GRANULOCYTES 0.2 %; IMMATURE GRANULOCYTES ABSOLUTE 0.01 10/3/uL (0.0-0.11); LYMPHOCYTES 28.3 %; LYMPHOCYTES ABSOLUTE 1.29 10/3/uL (0.67-4.30); MEAN CORPUS HGB CONC 32.6 g/dL (32.0-36.0); MEAN CORPUSCULAR HEMOGLOB 27.3 pg (26.0-34.0); MEAN CORPUSCULAR VOLUME 83.9 fL (80-100); MEAN PLATELET VOLUME 11.7 fL (9.2-13.0); MONOCYTES 12.1 %; MONOCYTES ABSOLUTE 0.55 10/3/uL (0.21-1.20); NEUTROPHILS 55.9 %; NEUTROPHILS ABSOLUTE 2.55 10/3/uL (2.02-8.40); PLATELET COUNT 184 10/3/uL (150-400); RBC DISTRIBUTION WIDTH 14.4 % (12.0-16.0); RED CELL COUNT 5.23 10/6/uL (4.0-5.6); WHITE BLOOD CELLS 4.6 10/3/uL (4.5-10.5)
[2016-11-28 06:41] LABS: INTERNATIONAL NORMAL RATI 1.2 UNITS (-); PROTIME (NOT ORD) 15.1 SEC (12.0-14.5)
[2016-11-28 06:46] LABS: ALBUMIN 2.7 G/DL (3.5-5.0); ALKALINE PHOSPHATASE 89 U/L (45-117); BUN (BLOOD UREA NITROGEN) 5 MG/DL (6-23); CALCIUM, SERUM 8.2 MG/DL (8.5-10.4); CHLORIDE, SERUM 104 MMOL/L (96-112); CO2 (CARBON DIOXIDE) 26 MMOL/L (24-34); CREATININE 0.51 MG/DL (0.55-1.02); DIRECT BILIRUBIN 0.2 MG/DL (0.0-0.4); GFR AFRICAN AMERICAN 102 ML/MIN (>=60); GFR NON AFRICAN AMERICAN 88 ML/MIN (>=60); GLUCOSE, SERUM 92 MG/DL (60-99); INDIRECT BILIRUBIN(NOT ORDER) 0.5 MG/DL (0.1-0.9); POTASSIUM, SERUM 3.7 MMOL/L (3.5-5.3); SGOT(AST) 18 U/L (5-40); SGPT(ALT) 20 U/L (5-65); SODIUM, SERUM 140 MMOL/L (135-148); TOTAL BILIRUBIN 0.7 MG/DL (0-1.2); TOTAL PROTEIN 6.3 G/DL (6.0-8.5)
[2016-11-28 06:48] LABS: MANUAL DIFF NO %
[2016-11-28 06:52] LABS: PHOSPHORUS, SERUM 2.8 MG/DL (2.5-4.5)
[2016-11-29 04:57] LABS: BASOPHILS 0 %; EOSINOPHILS 0 %; HEMATOCRIT 43.3 % (36.0-48.0); HEMOGLOBIN 14.2 g/dL (12.0-16.0); IMMATURE GRANULOCYTES 0.2 %; IMMATURE GRANULOCYTES ABSOLUTE 0.02 10/3/uL (0.0-0.11); LYMPHOCYTES 13.1 %; LYMPHOCYTES ABSOLUTE 1.23 10/3/uL (0.67-4.30); MEAN CORPUS HGB CONC 32.8 g/dL (32.0-36.0); MEAN CORPUSCULAR HEMOGLOB 27.2 pg (26.0-34.0); MEAN PLATELET VOLUME 11.3 fL (9.2-13.0); MONOCYTES 7.4 %; NEUTROPHILS 79.3 %; NEUTROPHILS ABSOLUTE 7.46 10/3/uL (2.02-8.40); PLATELET COUNT 198 10/3/uL (150-400); RBC DISTRIBUTION WIDTH 14.2 % (12.0-16.0); RED CELL COUNT 5.22 10/6/uL (4.0-5.6)
[2016-11-29 04:58] LABS: MANUAL DIFF NO %; WHITE BLOOD CELLS 9.4 10/3/uL (4.5-10.5)
[2016-11-29 05:06] LABS: POTASSIUM, SERUM 3.6 MMOL/L (3.5-5.3)
[2016-11-29 05:12] LABS: INTERNATIONAL NORMAL RATI 1.3 UNITS (-); PARTIAL THROMBO TIME 27.1 SEC (22.5-37.2); PROTIME (NOT ORD) 16.1 SEC (12.0-14.5)
[2016-12-01 17:56] LABS: HEMATOCRIT 42.8 % (36.0-48.0); HEMOGLOBIN 13.9 g/dL (12.0-16.0)
[2016-12-02 06:04] LABS: BASOPHILS 0 %; EOSINOPHILS 0 %; HEMATOCRIT 43.7 % (36.0-48.0); HEMOGLOBIN 14.5 g/dL (12.0-16.0); IMMATURE GRANULOCYTES 0.3 %; IMMATURE GRANULOCYTES ABSOLUTE 0.03 10/3/uL (0.0-0.11); LYMPHOCYTES 12.1 %; LYMPHOCYTES ABSOLUTE 1.12 10/3/uL (0.67-4.30); MEAN CORPUS HGB CONC 33.2 g/dL (32.0-36.0); MEAN CORPUSCULAR HEMOGLOB 27.5 pg (26.0-34.0); MEAN CORPUSCULAR VOLUME 82.8 fL (80-100); MEAN PLATELET VOLUME 11.9 fL (9.2-13.0); MONOCYTES 8.4 %; MONOCYTES ABSOLUTE 0.78 10/3/uL (0.21-1.20); NEUTROPHILS 79.2 %; NEUTROPHILS ABSOLUTE 7.31 10/3/uL (2.02-8.40); PLATELET COUNT 217 10/3/uL (150-400); RBC DISTRIBUTION WIDTH 14.6 % (12.0-16.0); RED CELL COUNT 5.28 10/6/uL (4.0-5.6); WHITE BLOOD CELLS 9.2 10/3/uL (4.5-10.5)
[2016-12-02 06:05] LABS: MANUAL DIFF NO %
[2016-12-02 06:26] LABS: A/G RATIO 0.7 (0.7-1.9); ALBUMIN 2.9 G/DL (3.5-5.0); ALKALINE PHOSPHATASE 95 U/L (45-117); BUN (BLOOD UREA NITROGEN) 4 MG/DL (6-23); CALCIUM, SERUM 8.5 MG/DL (8.5-10.4); CHLORIDE, SERUM 100 MMOL/L (96-112); CO2 (CARBON DIOXIDE) 30 MMOL/L (24-34); CREATININE 0.61 MG/DL (0.55-1.02); GFR AFRICAN AMERICAN 96 ML/MIN (>=60); GFR NON AFRICAN AMERICAN 83 ML/MIN (>=60); POTASSIUM, SERUM 3.4 MMOL/L (3.5-5.3); SGOT(AST) 25 U/L (5-40); SGPT(ALT) 28 U/L (5-65); SODIUM, SERUM 139 MMOL/L (135-148); TOTAL BILIRUBIN 0.6 MG/DL (0-1.2); TOTAL PROTEIN 6.9 G/DL (6.0-8.5)
[2016-12-02 06:27] LABS: GLUCOSE, SERUM 117 MG/DL (60-99)
== END 2016-12-04 15:16 | DRG 418 ==
LOC: 4SO 12:19
PROVIDERS: Hospitalist; Internal Medicine; Nurse Practitioner Family; Surgery
DX: K80.10 Calculus of gallbladder with chronic cholecystitis without obstruction (principal); K80.45 Calculus of bile duct with chronic cholecystitis with obstruction; E44.0 Moderate protein-calorie malnutrition; I48.2 Chronic atrial fibrillation; K76.89 Other specified diseases of liver; I10 Essential (primary) hypertension; E78.5 Hyperlipidemia, unspecified; G47.33 Obstructive sleep apnea (adult) (pediatric); G31.84 Mild cognitive impairment of uncertain or unknown etiology; K21.9 Gastro-esophageal reflux disease without esophagitis; I25.10 Atherosclerotic heart disease of native coronary artery without angina pectoris; Z79.01 Long term (current) use of anticoagulants; M17.0 Bilateral primary osteoarthritis of knee; M19.012 Primary osteoarthritis, left shoulder; M19.011 Primary osteoarthritis, right shoulder; K59.09 Other constipation; Z96.653 Presence of artificial knee joint, bilateral; Z88.8 Allergy status to other drugs, medicaments and biological substances; Z88.5 Allergy status to narcotic agent; M51.36 Other intervertebral disc degeneration, lumbar region; Z79.891 Long term (current) use of opiate analgesic; R43.2 Parageusia; Z68.25 Body mass index [BMI] 25.0-25.9, adult; G89.4 Chronic pain syndrome; R53.1 Weakness; R53.81 Other malaise
CPT/HCPCS: 74181; 74330; 80048; 80053; 80069; 80076; 82105; 82150; 82272; 83605; 83690; 83735; 84132; 84134; 84439; 84443; 85014; 85018; 85025; 85610; 85730; 86301; 88304; 93005; 94002; 94770; 97116-GP; 97162-GP; A9270-GY; C1769; J0360; J0690; J1170; J1956; J2270; J2405; J2710; J3010